=== PATIENT | male | born 1950 | race Two or more races ===

== ENCOUNTER → 2022-10-11 | Outpatient (CLI) | payer MEDICARE | END | disposition home or self-care (01) | LOC: Rad HDHVI 11:48 | PROVIDERS: ATTEND Internal Medicine Cardiovascular Disease | DX: J90 Pleural effusion, not elsewhere classified (principal); R60.9 Edema, unspecified; R06.02 Shortness of breath | CPT/HCPCS: 71046 ==

== ENCOUNTER → 2022-10-20 | Outpatient (CLI) | payer MEDICARE ==
[~2022-10-20] VITALS: Ht 182.9 cm; Wt 79.4 kg
== END | disposition home or self-care (01) ==
LOC: Rad HDHVI 13:18
PROVIDERS: ATTEND Internal Medicine Cardiovascular Disease
DX: I11.0 Hypertensive heart disease with heart failure (principal); I50.9 Heart failure, unspecified; I48.91 Unspecified atrial fibrillation
CPT/HCPCS: 78452; 93017; 96374; A9500

== ENCOUNTER → 2022-10-21 | Outpatient (CLI) | payer MEDICARE | END | disposition home or self-care (01) | LOC: Rad HDHVI 08:59 | PROVIDERS: ATTEND Internal Medicine Cardiovascular Disease | DX: I08.3 Combined rheumatic disorders of mitral, aortic and tricuspid valves (principal); I50.9 Heart failure, unspecified | CPT/HCPCS: 93306 ==

== ENCOUNTER → 2022-12-29 | Outpatient (CLI) | payer MEDICARE ==
[~2022-12-29] MED LIST: APIX5TAB PO; CARV6.2551 PO; FURO1TAB31 PO
[2022-12-29 08:40] VITALS: BP 122/79
[2022-12-29 09:02] VITALS: BP 113/68
== END | disposition home or self-care (01) ==
LOC: Rad HDHVI 08:29
PROVIDERS: ATTEND Internal Medicine Cardiovascular Disease
DX: Z01.818 Encounter for other preprocedural examination (principal); I48.0 Paroxysmal atrial fibrillation; I51.7 Cardiomegaly; I50.43 Acute on chronic combined systolic (congestive) and diastolic (congestive) heart failure; I42.1 Obstructive hypertrophic cardiomyopathy; M47.814 Spondylosis without myelopathy or radiculopathy, thoracic region; R94.31 Abnormal electrocardiogram [ECG] [EKG]
CPT/HCPCS: 71046; 93005; G0463; 36415; 80053; 85025; 85610; 85730

== ENCOUNTER 2022-12-30 08:40 | Day surgery (SDC) | payer MEDICARE ==
[2022-12-29 09:27] LABS: Basophils # (auto) 0 10 ^3/uL (0-0.2); Basophils % (auto) 0.7 % (0.0-2.0); Eosinophils # (auto) 0.1 10 ^3/uL (0-0.8); Eosinophils % (auto) 1.9 % (0.0-7.0); Hematocrit 41.7 % (41.0-53.0); Hemoglobin 13.8 g/dL (13.5-17.5); Lymphocytes % (auto) 13.4 % (10.0-50.0); Mean Corpuscular Hemoglobin 28.5 pg (28.0-32.0); Mean Corpuscular Hgb Conc. 32.9 g/dL (32.0-36.0); Mean Corpuscular Volume 86.6 fL (80.0-100.0); Monocytes # (auto) 0.8 10 ^3/uL (0-1.3); Monocytes % (auto) 10.8 % (0.0-12.0); Neutrophils # (auto) 5.3 10 ^3/uL (1.6-8.6); Neutrophils % (auto) 73.2 % (37.0-80.0); Red Blood Cells 4.82 10^6/uL (4.5-5.90); Red Cell Distribution Width 16.5 % (11.8-14.3); White Blood Cell 7.3 10^3/uL (4.4-10.8)
[2022-12-29 09:47] LABS: INR 1.05 (0.9-1.15); Partial Thromboplastin Time 27.9 sec (24.6-33.4)
[2022-12-29 09:53] LABS: Albumin 3.4 g/dL (3.4-5.0); Potassium 4.4 mmol/L (3.5-5.1)
[2022-12-29 09:57] LABS: BUN/Creatinine Ratio 19.6 (10.0-20.0); Total Protein 7.6 g/dL (6.4-8.2)
[~2022-12-30] VITALS: Ht 182.9 cm; Wt 75.7 kg
[2022-12-30] VITALS (7 sets, daily range): BP systolic 99–129; BP diastolic 63–91
[2022-12-30] MEDS ORDERED: MIDAZOLAM HCL 2MG/2ML 2ml VIAL (1mg/ml) ONE ×2 (13:37→14:20)
[2022-12-30] MEDS ORDERED: LIDOCAINE 2%HCL (LOCAL ANESTH.) INJ 20ML MDV ONE (13:37)
[2022-12-30] MEDS ORDERED: ANGIOMAX 250 MG VIAL IV ONE (13:37)
[2022-12-30] MEDS ORDERED: fentaNYL CITRATE 100 MCG/2 ML VL ONE (13:37)
[2022-12-30] MEDS ORDERED: SODIUM CHL 0.9% 50 ML ONE (13:38)
[2022-12-30] MEDS ORDERED: TICAGRELOR 90 MG TAB ONE (14:46)
[2022-12-30] MEDS ORDERED: CLOPIDOGREL 300 MG TAB ONE (14:47)
[2022-12-30] MEDS ORDERED: ASPirin 325 MG TAB ONE (14:47)
== END 2022-12-30 17:00 | disposition home or self-care (01) ==
LOC: CATH 08:40
PROVIDERS: ATTEND Internal Medicine Cardiovascular Disease
DX: I25.10 Atherosclerotic heart disease of native coronary artery without angina pectoris (principal); I11.0 Hypertensive heart disease with heart failure; I50.20 Unspecified systolic (congestive) heart failure; I48.91 Unspecified atrial fibrillation; E78.5 Hyperlipidemia, unspecified; I73.9 Peripheral vascular disease, unspecified; N28.9 Disorder of kidney and ureter, unspecified
CPT/HCPCS: 36247; 36415; 75716; 80053; 85025; 85610; 85730; 93458; 93571; C1769; C1874; C1887; C1894; C9600; J0583; J1644; J2250; J3010; 99152; 99153

== ENCOUNTER → 2023-02-18 | Outpatient (CLI) | payer MEDICARE ==
[~2023-02-18] MED LIST changes: -APIX5TAB PO
== END | disposition home or self-care (01) ==
LOC: Rad HDHVI 10:46
PROVIDERS: ATTEND Internal Medicine Cardiovascular Disease
DX: I08.3 Combined rheumatic disorders of mitral, aortic and tricuspid valves (principal); I10 Essential (primary) hypertension; R07.89 Other chest pain
CPT/HCPCS: 93306

== ENCOUNTER 2023-05-10 13:21 | Emergency (ER) | payer MEDICARE ==
[~2023-05-10] VITALS: Ht 185.4 cm; Wt 70.6 kg
[~2023-05-10 13:21] MED LIST changes: +CLOP75TA28 PO
[2023-05-10 14:33] LABS: Basophils # (auto) 0.1 10 ^3/uL (0-0.2); Basophils % (auto) 0.4 % (0.0-2.0); Eosinophils # (auto) 0 10 ^3/uL (0-0.8); Eosinophils % (auto) 0.3 % (0.0-7.0); Hemoglobin 12.7 g/dL (13.5-17.5); Lymphocytes # (auto) 0.5 10 ^3/uL (0.4-5.4); Lymphocytes % (auto) 3.5 % (10.0-50.0); Mean Corpuscular Hgb Conc. 32.6 g/dL (32.0-36.0); Mean Corpuscular Volume 88.8 fL (80.0-100.0); Monocytes % (auto) 7.1 % (0.0-12.0); Neutrophils # (auto) 12.7 10 ^3/uL (1.6-8.6); Neutrophils % (auto) 88.7 % (37.0-80.0); Red Blood Cells 4.39 10^6/uL (4.5-5.90); Red Cell Distribution Width 15.1 % (11.8-14.3); White Blood Cell 14.4 10^3/uL (4.4-10.8)
[2023-05-10 14:58] LABS: Alanine Aminotransferase 25 U/L (7-40); Albumin 3.5 g/dL (3.2-4.8); Alkaline Phosphatase 80 U/L (46-116); Anion Gap 6 (5-15); Aspartate Aminotransferase 31 U/L (13-40); BUN/Creatinine Ratio 18.9 (10.0-20.0); Blood Urea Nitrogen 30 mg/dL (9-23); Calcium 9.2 mg/dL (8.7-10.4); Carbon Dioxide 28 mmol/L (20-30); Chloride 100 mmol/L (98-107); Glucose 149 mg/dL (74-106); Potassium 4.2 mmol/L (3.5-5.1); Sodium 134 mmol/L (136-145)
[2023-05-10 14:59] LABS: Bilirubin, Total 1.8 mg/dL (0.2-1.0); Total Protein 6.7 g/dL (5.7-8.2)
[2023-05-10] MEDS ORDERED: PANTOPRAZOLE 40 MG TAB PO ONE (16:15)
[2023-05-10] MEDS ORDERED: levoFLOXacin 500 MG TAB PO ONE (16:15)
[2023-05-10] MEDS ORDERED: ALBUTEROL SULF 2.5 MG/0.5ML(0.5%) NEB SOLN NEB ONE ×2 (16:15→17:30)
[2023-05-10] MEDS ORDERED: DexAMETHasone SOD PHOS 10MG/1ML VIAL INJ IM ONE (16:15)
[2023-05-10] MEDS ORDERED: IPRATROPIUM BROM 0.5 MG/2.5ML INH SOL NEB ONE ×2 (16:15→17:30)
[2023-05-10] MEDS ORDERED: LEVO500T91 PO (19:30)
[2023-05-10] MEDS ORDERED: ALBUAER3 IN (19:30)
[2023-05-10] MEDS ORDERED: PRED20TA2 PO (19:30)
[2023-05-10 19:59] VITALS: BP 104/66; PULSE 81; RESP 20; TEMP 98.3; O2SAT 95
== END 2023-05-10 20:03 | disposition home or self-care (01) ==
LOC: ER 13:21
DX: J18.9 Pneumonia, unspecified organism (principal); J98.01 Acute bronchospasm; I10 Essential (primary) hypertension; R07.89 Other chest pain
CPT/HCPCS: 36415; 71046; 80053; 84484; 85025; 93005; 94640; 96372; 99285; J1100; J7644